=== PATIENT | female | born 2005 | race Caucasian/White ===

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

== ENCOUNTER 2025-06-14 01:09 | Emergency (ER) | payer MEDICAID ==
[2025-06-14] MEDS ORDERED: Activated Charcoal/Water Susp 25 GM/120 ML Tube PO ONE (01:27)
[2025-06-14 01:33] LABS: BASOPHILS ABSOLUTE AUTO 0.05 K/uL (0.00-0.10); BASOPHILS PERCENT AUTO 0.7 % (0.1-1.3); EOSINOPHILS ABSOLUTE AUTO 0.11 K/uL (0.00-0.40); EOSINOPHILS PERCENT AUTO 1.5 % (0.0-5.4); IMMATURE GRAN PERCENT AUTO 0.3 % (0.0-0.7); LYMPHOCYTES ABSOLUTE AUTO 2.79 K/uL (0.8-3.3); LYMPHOCYTES PERCENT AUTO 38.0 % (11.4-47.7); MONOCYTES ABSOLUTE AUTO 0.62 K/uL (0.20-0.90); MONOCYTES PERCENT AUTO 8.4 % (3.3-12.6); NEUTROPHILS ABSOLUTE AUTO 3.76 K/uL (1.0-7.6); NEUTROPHILS PERCENT AUTO 51.1 % (40.0-78.1); PLATELET COUNT,PLT 335 K/uL (130-375); RED BLOOD CELL COUNT 4.38 M/uL (3.77-5.24); WHITE BLOOD CELL COUNT,WBC 7.4 K/uL (3.2-11.0)
[2025-06-14 01:37] LABS: IMMATURE GRAN ABSOLUTE AUTO 0.02 K/uL (0.00-0.23)
[2025-06-14 01:43] LABS: A/G RATIO 1.1 (1.2-2.2); ALANINE AMINOTRANSFERASE,ALT 16 U/L (12-78); ASPARTATE AMNIOTRANSFERASE,AST 16 U/L (15-37); BILIRUBIN TOTAL 0.3 mg/dL (0.2-1.0); BLOOD UREA NITROGEN,BUN 4 mg/dL (7-18); CARBON DIOXIDE,CO2 30 mmol/L (21-32); CHLORIDE,CL 102 mmol/L (100-108); CREATININE 0.8 mg/dL (0.6-1.0); EST CRCL DRUG DOSING (CG) 88.36 mL/min; ESTIMATED GFR 108 mL/min (>60); GLUCOSE RANDOM 107 mg/dL (74-106); PROTEIN TOTAL,TP 7.1 g/dL (6.4-8.2); SODIUM,NA 140 mmol/L (140-148)
[2025-06-14 01:43] LABS: APPEARANCE,URINE CLOUDY (CLEAR); GLUCOSE,URINE NEGATIVE (NEGATIVE); OCCULT BLOOD,URINE NEGATIVE (NEGATIVE)
[2025-06-14] MEDS: Activated Charcoal/Water Susp 25 GM/120 ML Tube PO ONE (01:44)
[2025-06-14 01:45] LABS: AMPHETAMINES SCREEN, URINE NEGATIVE (NEGATIVE); METHADONE SCREEN, URINE NEGATIVE (NEGATIVE); METHAMPHETAMINES SCREEN, URINE NEGATIVE (NEGATIVE); OXYCODONE SCREEN,URINE NEGATIVE (NEGATIVE); PROPOXYPHENE SCREEN,URINE NEGATIVE (NEGATIVE); THC SCREEN,URINE 50 NG/ML NEGATIVE (NEGATIVE)
[2025-06-14 01:49] LABS: POTASSIUM,K 2.9 mmol/L (3.6-5.2)
[2025-06-14 01:53] LABS: SQUAMOUS EPITHELIAL CELLS,UR MODERATE /HPF; UROTHELIAL CELLS,URINE NOT SEEN /HPF
[2025-06-14] MEDS: NS + KCl 20mEq/L 1,000 ML IV SCH (03:27)
[2025-06-14 04:20] LABS: INR 1.1
[2025-06-14 04:24] LABS: A/G RATIO 1.1 (1.2-2.2); ALANINE AMINOTRANSFERASE,ALT 9 U/L (12-78); ASPARTATE AMNIOTRANSFERASE,AST 14 U/L (15-37); BILIRUBIN DIRECT 0.08 mg/dL (0.0-0.2); BILIRUBIN TOTAL 0.3 mg/dL (0.2-1.0); PROTEIN TOTAL,TP 6.4 g/dL (6.4-8.2)
[2025-06-14] MEDS: Ondansetron 4 MG/2 ML SDV IVPUSH ONE ×3 (04:54→08:34)
[2025-06-14] MEDS: Acetylcysteine 10,000 MG in Dextrose 5% in Water 200 ML IV STA (05:19)
[2025-06-14] MEDS: DEXTROSE 5% IV ONE (06:26)
[2025-06-14] MEDS: WATER IV ONE (06:26)
[2025-06-14] MEDS: ACETYLCYSTEINE IV ONE (06:26)
== END 2025-06-14 08:50 | disposition other institution (70) ==
LOC: JP.ED 01:09
DX: T39.1X2A Poisoning by 4-Aminophenol derivatives, intentional self-harm, initial encounter (principal)
CPT/HCPCS: 36415; 80053; 80076; 80143; 80179; 80305; 80307; 81001; 81025; 83605; 85025; 85610; 96365; 96366; 96368; 96375; 96376; 99285; A9270; J0132; J2405; J3480; J7060